=== PATIENT | female | born 1970 | race Caucasian/White ===

== ENCOUNTER → 2024-03-23 08:06 | Outpatient (REF) | payer BC, SELFPAY ==
[2024-03-23 10:32] LABS: Erythrocyte Sed Rate 19 mm/hour (0-20)
[2024-03-23 10:57] LABS: TSH Reflex To Free T4 2.52 uIU/ml (0.47-4.68)
[2024-03-23 11:01] LABS: Ferritin 31.3 ng/ml (11.1-264.0)
[2024-03-23 11:32] LABS: Folate > 20.0 ng/ml (2.76-20); Vitamin B12 258 pg/ml (239-931)
[2024-03-23 12:37] LABS: Glycohemoglobin (HgbA1c) 5.8 % (4.0-5.6)
[2024-03-25 08:13] LABS: ANA, IgG Reflex to HEp-2 None Detected (None Detected)
== END ==
LOC: HWLAB 08:06
PROVIDERS: ATTENDING PHYSICIAN Psychiatry & Neurology Neurology; FAMILY PHYSICIAN Family Medicine
DX: G47.9 Sleep disorder, unspecified (principal); R20.9 Unspecified disturbances of skin sensation
CPT/HCPCS: 36415; 82607; 82728; 82746; 83036; 84443; 85652; 86038; 86780

== ENCOUNTER → 2024-04-05 07:45 | Outpatient (REF) | payer BC, SELFPAY | LOC: HWRAD 07:45 | PROVIDERS: ATTENDING PHYSICIAN Psychiatry & Neurology Neurology; FAMILY PHYSICIAN Family Medicine | DX: I72.9 Aneurysm of unspecified site (principal) | CPT/HCPCS: 70496; 70498; Q9967 ==

== ENCOUNTER → 2024-09-12 07:14 | Outpatient (REF) | payer BC, SELFPAY ==
[2024-09-12 10:02] LABS: ALT (SGPT) 19 U/L (0-35); AST (SGOT) 23 U/L (14-36); Albumin 4.2 g/dl (3.5-5.0); Blood Urea Nitrogen 21 mg/dl (7-17); Calcium 9.4 mg/dl (8.4-10.2); Carbon Dioxide 24 mmol/L (22-30); Chloride 104 mmol/L (98-107); Glucose 105 mg/dl (70-99); HDL Cholesterol 54 mg/dl; Iron 104 ug/dl (37-170); LDL Cholesterol, Calculated 80 mg/dl; Phosphorus 3.7 mg/dl (2.5-4.5); Potassium 3.8 mmol/L (3.5-5.1); Sodium 142 mmol/L (135-145); Total Cholesterol 155 mg/dl (50-199); Triglyceride 107 mg/dl (10-149); Very Low Density Lipoprotein 21 mg/dl (0-30); eGFR > 60.00
[2024-09-12 10:19] LABS: Vitamin B12 481 pg/ml (239-931)
== END ==
LOC: HWLAB 07:14
PROVIDERS: ATTENDING PHYSICIAN Internal Medicine Cardiovascular Disease; FAMILY PHYSICIAN Student in an Organized Health Care Education/Training Program
DX: J30.89 Other allergic rhinitis (principal); I10 Essential (primary) hypertension; E78.5 Hyperlipidemia, unspecified
CPT/HCPCS: 36415; 80061; 80069; 82607; 82728; 83540; 84450; 84460

== ENCOUNTER → 2024-09-20 16:19 | Outpatient (REF) | payer BC, SELFPAY ==
[2024-09-29 01:50] LABS: HPV, High Risk Not Detected; HPV, High Risk Source Cervical
== END ==
LOC: CPAP 16:19
PROVIDERS: ATTENDING PHYSICIAN Student in an Organized Health Care Education/Training Program
DX: Z01.419 Encounter for gynecological examination (general) (routine) without abnormal findings (principal)
CPT/HCPCS: 87624; G0123

== ENCOUNTER → 2024-11-08 07:20 | Outpatient (REF) | payer BC, SELFPAY | LOC: HWWDC 07:20 | PROVIDERS: ATTENDING PHYSICIAN Student in an Organized Health Care Education/Training Program; FAMILY PHYSICIAN Family Medicine | DX: Z12.31 Encounter for screening mammogram for malignant neoplasm of breast (principal) | CPT/HCPCS: 77063; 77067 ==

== ENCOUNTER → 2024-11-22 08:06 | Outpatient (REF) | payer BC, SELFPAY ==
[2024-11-25 07:31] LABS: HPV, High Risk Not Detected; HPV, High Risk Source Cervical
== END ==
LOC: CPAP 08:06
PROVIDERS: ATTENDING PHYSICIAN Student in an Organized Health Care Education/Training Program
DX: R87.615 Unsatisfactory cytologic smear of cervix (principal); Z11.51 Encounter for screening for human papillomavirus (HPV)
CPT/HCPCS: 87624; G0123

== ENCOUNTER 2025-01-03 13:39 | Outpatient (RCR) | payer BC, SELFPAY ==
[2025-01-03 13:50] VITALS: BP 162/93
[2025-01-03] MEDS: INJECTAFER 265 MG IV (14:11)
[2025-01-03 14:25] VITALS: BMI 37.0
[2025-01-03 15:10] VITALS: BP 141/81
== END 2025-01-04 09:37 | disposition home or self-care (01) ==
LOC: OID 13:39
PROVIDERS: ATTENDING PHYSICIAN Psychiatry & Neurology Neurology; FAMILY PHYSICIAN Family Medicine
DX: D50.8 Other iron deficiency anemias (principal); R79.0 Abnormal level of blood mineral; E53.8 Deficiency of other specified B group vitamins
CPT/HCPCS: 96365; J1439

== ENCOUNTER → 2025-01-08 15:18 | Outpatient (REF) | payer BC, SELFPAY | LOC: CLAB 15:18 | PROVIDERS: ATTENDING PHYSICIAN Student in an Organized Health Care Education/Training Program | DX: R87.615 Unsatisfactory cytologic smear of cervix (principal); Z11.51 Encounter for screening for human papillomavirus (HPV) | CPT/HCPCS: 88305 ==

== ENCOUNTER → 2025-03-08 11:12 | Outpatient (REF) | payer BC, SELFPAY | LOC: HWRAD 11:12 | PROVIDERS: ATTENDING PHYSICIAN Student in an Organized Health Care Education/Training Program | DX: R05.1 Acute cough (principal); R09.89 Other specified symptoms and signs involving the circulatory and respiratory systems | CPT/HCPCS: 71046 ==

== ENCOUNTER → 2025-04-08 10:25 | Outpatient (REF) | payer BC, SELFPAY | LOC: RAD 10:25 | PROVIDERS: ATTENDING PHYSICIAN Psychiatry & Neurology Neurology; FAMILY PHYSICIAN Student in an Organized Health Care Education/Training Program | DX: I67.1 Cerebral aneurysm, nonruptured (principal) | CPT/HCPCS: 70496; 70498; Q9967 ==

== ENCOUNTER → 2025-04-24 06:50 | Outpatient (REF) | payer BC, SELFPAY ==
[2025-04-24 10:33] LABS: Ferritin 307.0 ng/ml (11.1-264.0)
== END ==
LOC: HWLAB 06:50
PROVIDERS: ATTENDING PHYSICIAN Nurse Practitioner Adult Health; FAMILY PHYSICIAN Student in an Organized Health Care Education/Training Program
DX: R79.0 Abnormal level of blood mineral (principal)
CPT/HCPCS: 36415; 82728

== ENCOUNTER → 2025-07-22 12:36 | Outpatient (REF) | payer BC, SELFPAY | LOC: MRI 3T 12:36 | PROVIDERS: ATTENDING PHYSICIAN Specialist; FAMILY PHYSICIAN Student in an Organized Health Care Education/Training Program | DX: M25.512 Pain in left shoulder (principal) | CPT/HCPCS: 73221 ==

== ENCOUNTER → 2025-08-01 20:21 | Outpatient (REF) | payer BC, SELFPAY | LOC: PAVMRI 20:21 | PROVIDERS: ATTENDING PHYSICIAN Physician Assistant Surgical; FAMILY PHYSICIAN Student in an Organized Health Care Education/Training Program | DX: M25.511 Pain in right shoulder (principal) | CPT/HCPCS: 73221 ==